=== PATIENT | male | born 1980 | race Two or more races ===

== ENCOUNTER 2017-02-25 11:23 | Emergency (ER) | payer OTHER ==
[~2017-02-25] VITALS: Ht 162.6 cm; Wt 106.6 kg
[2017-02-25 11:29] VITALS: BP 156/108
== END 2017-02-25 14:23 | disposition home or self-care (01) ==
LOC: ER 11:26
DX: F32.9 Major depressive disorder, single episode, unspecified (principal); F41.9 Anxiety disorder, unspecified; Z82.49 Family history of ischemic heart disease and other diseases of the circulatory system

== ENCOUNTER 2017-05-01 08:28 | Emergency (ER) | payer OTHER ==
[~2017-05-01] VITALS: Ht 162.6 cm; Wt 106.1 kg
[2017-05-01 09:25] VITALS: BP 160/99
== END 2017-05-01 09:32 | disposition left against medical advice (07) ==
LOC: ER 08:28
DX: R56.9 Unspecified convulsions (principal); R51 Headache
CPT/HCPCS: 70450; 93005